=== PATIENT | female | born 1990 | race Hispanic/Latino ===

== ENCOUNTER 2021-02-18 11:24 | Observation (INO) | payer OTHER ==
[2021-02-18 11:33] VITALS: BMI 36.7
[2021-02-18] MEDS ORDERED: FLU VACC QS2021-22(6MOS UP)/PF 60 MCG/0.5 ML SYRINGE IM ONE (11:45)
[2021-02-18] MEDS ORDERED: Acetaminophen 325 MG TAB PO PRN (12:25)
[2021-02-18] MEDS ORDERED: Ondansetron ODT 4 MG TAB PO PRN (12:25)
[2021-02-18 13:05] LABS: #Basophils 0.1 10x3/uL (0.0-0.2); #Monocytes 0.5 10x3/uL (0.0-1.1); #Neutrophils 5.7 10x3/uL (1.5-8.4); %Basophils 1.3 % (0.0-2.0); %Eosinophils 0.4 % (0.0-6.0); %Lymphocytes 18.8 % (18.0-47.0); %Monocytes 6.2 % (0.0-10.0); %Neutrophils 72.2 % (40.0-75.0); Hemoglobin 12.2 g/dL (12.0-15.5); Mean Corpuscular HGB CONC 33.1 g/dL (32.0-36.0); Mean Corpuscular Hemoglobin 33.2 pg (27.0-33.0); Mean Corpuscular Volume 100.5 fl (81.6-98.3); Platelet Count 387 10x3/uL (150-450); RBC Distribution Width 12.9 % (11.5-14.5); Red Blood Cell (RBC) Count 3.67 10x6/uL (3.90-5.03); White Blood Cell (WBC) Count 7.9 10x3/uL (3.5-10.5)
[2021-02-18 13:51] LABS: ALT (SGPT) 22 U/L (8-55); AST (SGOT) 30 U/L (5-34); Albumin 3.9 g/dL (3.5-5.0); Alkaline Phosphatase 74 U/L (40-110); Anion Gap 16 mmol/L (10-20); BUN (Urea Nitrogen) 5 mg/dL (7.0-18.7); Bilirubin, Total 0.3 mg/dL (0.2-1.2); Calc. Creatinine Clearance 206 mL/min (70-130); Calcium 8.1 mg/dL (7.8-10.44); Carbon Dioxide 22 mmol/L (22-29); Chloride 104 mmol/L (98-107); Globulin 3.2 g/dL (2.4-3.5); Glucose 129 mg/dL (70-105); Magnesium 1.9 mg/dL (1.6-2.6); Potassium 4.1 mmol/L (3.5-5.1); Protein, Total 7.1 g/dL (6.0-8.3); Sodium 138 mmol/L (136-145)
[2021-02-18 19:42] LABS: Carbamazepine-Tegretol 20.7 ug/mL (4.0-12.0)
[2021-02-18 21:01] LABS: Carbamazepine-Tegretol 18.6 ug/mL (4.0-12.0)
[2021-02-18] MEDS ORDERED: diphenhydrAMINE 25 MG CAP PO PRN (21:18)
[2021-02-18] MEDS ORDERED: diphenhydrAMINE 25 MG CAP PO SCH (21:30)
[2021-02-19 05:20] LABS: #Basophils 0.1 10x3/uL (0.0-0.2); #Eosinphils 0.2 10x3/uL (0.0-0.5); #Monocytes 0.7 10x3/uL (0.0-1.1); #Neutrophils 5.1 10x3/uL (1.5-8.4); %Basophils 1.2 % (0.0-2.0); %Eosinophils 2.8 % (0.0-6.0); %Lymphocytes 28.3 % (18.0-47.0); %Neutrophils 59.2 % (40.0-75.0); Hemoglobin 12.1 g/dL (12.0-15.5); Mean Corpuscular HGB CONC 33.2 g/dL (32.0-36.0); Mean Corpuscular Hemoglobin 33.5 pg (27.0-33.0); Mean Corpuscular Volume 100.8 fl (81.6-98.3); Mean Platelet Volume 9.1 fl (7.4-10.4); Platelet Count 360 10x3/uL (150-450); RBC Distribution Width 13.1 % (11.5-14.5); Red Blood Cell (RBC) Count 3.61 10x6/uL (3.90-5.03); White Blood Cell (WBC) Count 8.6 10x3/uL (3.5-10.5)
[2021-02-19 05:25] LABS: ALT (SGPT) 19 U/L (8-55); AST (SGOT) 24 U/L (5-34); Albumin 3.7 g/dL (3.5-5.0); Alkaline Phosphatase 69 U/L (40-110); Anion Gap 11 mmol/L (10-20); BUN (Urea Nitrogen) 7 mg/dL (7.0-18.7); Bilirubin, Total 0.4 mg/dL (0.2-1.2); Calc. Creatinine Clearance 199 mL/min (70-130); Calcium 8.4 mg/dL (7.8-10.44); Carbon Dioxide 24 mmol/L (22-29); Chloride 107 mmol/L (98-107); Globulin 3.2 g/dL (2.4-3.5); Glucose 124 mg/dL (70-105); Potassium 3.6 mmol/L (3.5-5.1); Protein, Total 6.9 g/dL (6.0-8.3); Sodium 138 mmol/L (136-145)
[2021-02-19 06:23] LABS: Carbamazepine-Tegretol 13.8 ug/mL (4.0-12.0)
[2021-02-19 06:46] LABS: Carbamazepine-Tegretol 11.7 ug/mL (4.0-12.0)
[2021-02-19 06:46] LABS: Carbamazepine-Tegretol 14.9 ug/mL (4.0-12.0)
[2021-02-19] MEDS: Gabapentin 300 MG CAP PO SCH ×3 (08:11→20:07)
[2021-02-19] MEDS: Zonisamide 100 MG CAP PO SCH ×2 (08:11→20:09)
[2021-02-19] MEDS: carBAMazepine 200 MG TAB PO SCH ×2 (08:11→20:09)
[2021-02-19] MEDS ORDERED: OLANZapine 5 MG TAB PO SCH (09:00)
[2021-02-19] MEDS ORDERED: Aripiprazole 10 MG TAB PO SCH (21:00)
[2021-02-19] MEDS ORDERED: risperiDONE 1 MG TAB PO SCH (21:00)
[2021-02-19 22:07] VITALS: BP 112/65; TEMP 98.6
== END 2021-02-19 22:00 | disposition short-term general hospital (02) ==
LOC: CSHTELE 11:24 → INTOOBSV 11:24
PROVIDERS: ADMIT Family Medicine; ATTEND Family Medicine
DX: T42.8X2A Poisoning by antiparkinsonism drugs and other central muscle-tone depressants, intentional self-harm, initial encounter (principal); F31.9 Bipolar disorder, unspecified; F20.9 Schizophrenia, unspecified; G40.909 Epilepsy, unspecified, not intractable, without status epilepticus; Z91.51 Personal history of suicidal behavior; Z79.899 Other long term (current) drug therapy
CPT/HCPCS: 36415; 80053; 80156; 83735; 84443; 85025; G0378

== ENCOUNTER 2024-02-14 21:04 | Day surgery (SDC) | payer OTHER ==
[2024-02-14 21:20] VITALS: BMI 35.0
== END 2024-02-14 21:40 | disposition home or self-care (01) ==
LOC: CSHLD/OP 21:04
PROVIDERS: ATTEND Obstetrics & Gynecology
DX: O99.891 Other specified diseases and conditions complicating pregnancy (principal); R10.9 Unspecified abdominal pain; O34.211 Maternal care for low transverse scar from previous cesarean delivery; O99.352 Diseases of the nervous system complicating pregnancy, second trimester; G40.909 Epilepsy, unspecified, not intractable, without status epilepticus; Z79.899 Other long term (current) drug therapy; Z3A.22 22 weeks gestation of pregnancy
CPT/HCPCS: 99282

== ENCOUNTER 2024-03-01 11:09 | Day surgery (SDC) | payer OTHER ==
[2024-03-01] MEDS ORDERED: hydrALAZINE 20 MG/ML VIAL SLOW IVP PRN (11:21)
[2024-03-01 11:43] VITALS: BMI 35.2
[2024-03-01] MEDS ORDERED: levETIRAcetam 500 MG (5 mL) VIAL SLOW IVP SCH (14:00)
== END 2024-03-01 14:15 | disposition home or self-care (01) ==
LOC: CSHLD/OP 11:09
PROVIDERS: ATTEND Obstetrics & Gynecology
DX: O99.352 Diseases of the nervous system complicating pregnancy, second trimester (principal); G40.909 Epilepsy, unspecified, not intractable, without status epilepticus; O09.522 Supervision of elderly multigravida, second trimester; O34.211 Maternal care for low transverse scar from previous cesarean delivery; O99.342 Other mental disorders complicating pregnancy, second trimester; F31.9 Bipolar disorder, unspecified; F41.9 Anxiety disorder, unspecified; F20.9 Schizophrenia, unspecified; Z3A.23 23 weeks gestation of pregnancy; Z87.59 Personal history of other complications of pregnancy, childbirth and the puerperium; Z79.82 Long term (current) use of aspirin; Z79.899 Other long term (current) drug therapy
CPT/HCPCS: 70450; 80053; 85025; 93005; 94760; 96374; 96375; 99282; J1953; J2060

== ENCOUNTER 2024-03-18 20:30 | Emergency (ER) | payer OTHER | END 2024-03-18 23:12 | disposition home or self-care (01) | LOC: CSHERS 20:30 | DX: O99.352 Diseases of the nervous system complicating pregnancy, second trimester (principal); Z3A.26 26 weeks gestation of pregnancy | CPT/HCPCS: 99284 ==

== ENCOUNTER 2024-03-19 17:44 | Emergency (ER) | payer OTHER ==
[2024-03-19] MEDS ORDERED: levETIRAcetam 500 MG (5 mL) VIAL ONE (18:00)
== END 2024-03-19 20:07 | disposition home or self-care (01) ==
LOC: CSHERS 17:44
DX: R56.9 Unspecified convulsions (principal)
CPT/HCPCS: 96365; J1953

== ENCOUNTER 2024-04-02 00:51 | Day surgery (SDC) | payer OTHER ==
[2024-04-02] MEDS ORDERED: hydrALAZINE 20 MG/ML VIAL SLOW IVP PRN (01:14)
[2024-04-02 02:36] VITALS: BMI 36.2
[2024-04-02 02:39] LABS: ALT (SGPT) 9 U/L (8-55); AST (SGOT) 11 U/L (5-34); Albumin 2.4 g/dL (3.5-5.0); Alkaline Phosphatase 79 U/L (40-110); Anion Gap 12 mmol/L (10-20); BUN (Urea Nitrogen) 4 mg/dL (7.0-18.7); Bilirubin, Total 0.2 mg/dL (0.2-1.2); Calc. Creatinine Clearance 205 mL/min (70-130); Calcium 8.7 mg/dL (7.8-10.44); Carbon Dioxide 22 mmol/L (22-29); Chloride 105 mmol/L (98-107); Estimated GFR 121; Globulin 4.1 g/dL (2.4-3.5); Glucose 138 mg/dL (70-105); Lipase 16 U/L (8-78); Potassium 3.4 mmol/L (3.5-5.1); Protein, Total 6.5 g/dL (6.0-8.3); Sodium 136 mmol/L (136-145)
== END 2024-04-02 03:05 | disposition home or self-care (01) ==
LOC: CSHLD/OP 00:51
PROVIDERS: ATTEND Obstetrics & Gynecology
DX: O99.891 Other specified diseases and conditions complicating pregnancy (principal); R10.13 Epigastric pain; O09.522 Supervision of elderly multigravida, second trimester; O34.211 Maternal care for low transverse scar from previous cesarean delivery; O99.342 Other mental disorders complicating pregnancy, second trimester; F31.9 Bipolar disorder, unspecified; F41.9 Anxiety disorder, unspecified; F20.9 Schizophrenia, unspecified; O99.352 Diseases of the nervous system complicating pregnancy, second trimester; G40.909 Epilepsy, unspecified, not intractable, without status epilepticus; Z3A.28 28 weeks gestation of pregnancy; Z87.59 Personal history of other complications of pregnancy, childbirth and the puerperium; Z79.82 Long term (current) use of aspirin; Z79.899 Other long term (current) drug therapy
CPT/HCPCS: 36415; 80053; 83690; 99283